=== PATIENT | male | born 1980 | race Caucasian/White ===

== ENCOUNTER 2017-08-02 11:47 | Emergency (ER) | payer OTHER ==
[~2017-08-02] VITALS: Ht 185.4 cm; Wt 112.0 kg
[~2017-08-02 11:47] MED LIST: ESOM40CA PO
[2017-08-02] MEDS ORDERED: MAALOX/HYOSCYAMINE/LIDOCAINE 45 ML BTL ONE (11:52)
[2017-08-02] MEDS ORDERED: PLEASE ENTER HEIGHT AND WEIGHT MC SCH (11:58)
[2017-08-02] MEDS ORDERED: SODIUM CHLORIDE 0.9% 1,000ML IVBOLUS ONE (12:00)
[2017-08-02] MEDS ORDERED: SODIUM CHLORIDE FLUSH 10ML SYR IVF ONE (12:00)
[2017-08-02] MEDS ORDERED: MAALOX/HYOSCYAMINE/LIDOCAINE 45 ML BTL PO ONE (12:00)
[2017-08-02 12:19] LABS: HEMATOCRIT 43.9 % (39.2-51.8); HEMOGLOBIN 15.1 g/dL (13.7-18.0); WHITE BLOOD COUNT 6.7 x10^3/uL (3.4-10)
[2017-08-02 12:33] LABS: BLOOD UREA NITROGEN 15 mg/dL (7-18)
[2017-08-02 12:36] LABS: ASPARTATE AMINO TRANSFERASE 79 U/L (15-37)
[2017-08-02 13:44] VITALS: BP 120/74
== END 2017-08-02 13:46 | disposition home or self-care (01) ==
LOC: ED 12:12
DX: K29.00 Acute gastritis without bleeding (principal); G47.30 Sleep apnea, unspecified
CPT/HCPCS: 36415; 71010; 76700; 80053; 83605; 83690; 85025; 93005; 96360; 99285; J7030

== ENCOUNTER 2017-09-07 05:31 | Day surgery (SDC) | payer OTHER ==
[~2017-09-07] VITALS: Ht 182.9 cm; Wt 110.0 kg
[2017-09-07] MEDS ORDERED: LACTATED RINGERS 1,000 ML IV SCH ×2 (05:46→07:46)
[2017-09-07 05:49] VITALS: BP 142/90
[2017-09-07] MEDS ORDERED: LIDOCAINE 1%, 2ML SQ PRN (06:00)
[2017-09-07 06:10] VITALS: BP 142/90
[2017-09-07] MEDS ORDERED: BUPIVACAINE/PF 0.5% ONE (06:20)
[2017-09-07] MEDS ORDERED: EPINEPHRINE 1 MG/ML, 1ML ONE (06:21)
[2017-09-07] MEDS ORDERED: FENTANYL PF 250 MCG/5ML ONE (06:25)
[2017-09-07] MEDS ORDERED: MIDAZOLAM 1 MG/ML, 5ML ONE (06:25)
[2017-09-07] MEDS ORDERED: PROPOFOL 10 MG/ML, 20ML ONE (06:25)
[2017-09-07] MEDS ORDERED: SUCCINYLCHOLINE 20 MG/ML, 10ML ONE (06:25)
[2017-09-07] MEDS ORDERED: DEXAMETHASONE 4 MG/ML, 1ML ONE (06:27)
[2017-09-07] MEDS ORDERED: OXYcodone 5 MG/5 ML ORAL.SOL UDC PO PRN (07:00)
[2017-09-07] MEDS ORDERED: HYDROmorphone 1 MG/ML, 1ML IV PRN (07:00)
[2017-09-07] MEDS ORDERED: PROMETHAZINE 25 MG/ML, 1ML IV PRN (07:00)
[2017-09-07] MEDS ORDERED: MEPERIDINE/PF 25MG/0.5ML IVPush PRN (07:00)
[2017-09-07] MEDS ORDERED: ACETAMINOPHEN 325 MG TABLET PO PRN (07:00)
[2017-09-07] MEDS ORDERED: FENTANYL PF 100 MCG/2ML IV PRN (07:00)
[2017-09-07] MEDS ORDERED: hydrALAzine 20 MG/ML, 1ML IV PRN (07:00)
[2017-09-07] MEDS ORDERED: LABETALOL 5MG/ML, 20ML IV PRN (07:00)
[2017-09-07] MEDS ORDERED: ONDANSETRON 2MG/ML, 2ML IVPush PRN ×2 (07:00→08:00)
[2017-09-07] MEDS ORDERED: BUPIVACAINE/PF-EPI 0.5% 1:200K IM ONE (07:15)
[2017-09-07] MEDS ORDERED: ROCURONIUM 10 MG/ML,10ML ONE (07:22)
[2017-09-07] MEDS ORDERED: ONDANSETRON 2MG/ML, 2ML ONE (07:23)
[2017-09-07] MEDS ORDERED: GLYCOPYRROLATE 0.4 MG/2 ML, 2ML ONE (07:32)
[2017-09-07] MEDS ORDERED: NEOSTIGMINE 1 MG/ML, 10ML ONE (07:32)
[2017-09-07] MEDS ORDERED: KETOROLAC 30 MG/1 ML ONE (07:35)
[2017-09-07] MEDS ORDERED: ACETAMINOPHEN 650 MG/20.3 ML UDC ONE (07:51)
[2017-09-07] MEDS ORDERED: OXYcodone 5 MG/5 ML ORAL.SOL UDC ONE (07:51)
[2017-09-07] MEDS ORDERED: FENTANYL PF 100 MCG/2ML ONE (07:51)
[2017-09-07] MEDS ORDERED: HYDROcodone/APAP 7.5-325MG/15ML UDC PO PRN ×2 (08:00)
[2017-09-07] MEDS ORDERED: morphine SULFATE 10 MG/ML, 1ML IVPush PRN (08:00)
[2017-09-07] MEDS ORDERED: GABAPENTIN 300 MG CAPSULE ONE ×2 (08:14→10:46)
[2017-09-07] MEDS ORDERED: GABAPENTIN 300 MG CAPSULE PO SCH (09:00)
[2017-09-07] MEDS ORDERED: CEFOTETAN 2 GM ONE (16:25)
== END 2017-09-07 09:50 ==
LOC: OUT 05:31
PROVIDERS: ATTEND Thoracic Surgery (Cardiothoracic Vascular Surgery)
DX: K80.10 Calculus of gallbladder with chronic cholecystitis without obstruction (principal); K21.9 Gastro-esophageal reflux disease without esophagitis; E66.01 Morbid (severe) obesity due to excess calories; Z68.33 Body mass index [BMI] 33.0-33.9, adult; Z72.89 Other problems related to lifestyle; Z87.891 Personal history of nicotine dependence
CPT/HCPCS: 47562; 88304; J0171; J0330; J1100; J1885; J2250; J2405; J2704; J2710; J3010; J3490; J7120; S0074

== ENCOUNTER → 2019-10-30 | Outpatient (CLI) | payer OTHER ==
[~2019-10-30] MED LIST changes: +CYCL-259 PO; +DENIES; +GABA-826 PO; +OMEP-110 PO; +OXYC5CAP2 PO
== END | disposition home or self-care (01) ==
LOC: RAD 13:22
PROVIDERS: ATTEND Orthopaedic Surgery
DX: S83.241A Other tear of medial meniscus, current injury, right knee, initial encounter (principal); S83.511A Sprain of anterior cruciate ligament of right knee, initial encounter; M25.561 Pain in right knee; M22.41 Chondromalacia patellae, right knee; X58.XXXA Exposure to other specified factors, initial encounter; Y93.89 Activity, other specified; Y92.89 Other specified places as the place of occurrence of the external cause; Y99.8 Other external cause status

== ENCOUNTER 2019-12-24 14:56 | Outpatient (CLI) | payer OTHER | END 2019-12-24 23:59 | disposition home or self-care (01) | LOC: RAD 14:56 | PROVIDERS: ATTEND Internal Medicine | DX: R51 Headache (principal); I10 Essential (primary) hypertension | CPT/HCPCS: 70450 ==

== ENCOUNTER 2020-09-02 14:10 | Outpatient (CLI) | payer OTHER | END 2020-09-02 23:59 | disposition home or self-care (01) | LOC: RAD 14:10 | PROVIDERS: ATTEND Physical Medicine & Rehabilitation | DX: M50.122 Cervical disc disorder at C5-C6 level with radiculopathy (principal) | CPT/HCPCS: 72141 ==

== ENCOUNTER → 2020-12-08 | Outpatient (CLI) | payer OTHER ==
[~2020-12-08] MED LIST changes: +AMLO-150 PO; -CYCL-259 PO; +CYCL10TA2 PO; +FAMO-79 PO; +METH4TAB2 PO; +METH750T87 PO; +OXYC1TAB14 PO
== END | disposition home or self-care (01) ==
LOC: RAD 10:22
PROVIDERS: ATTEND Neurological Surgery
DX: M50.122 Cervical disc disorder at C5-C6 level with radiculopathy (principal)
CPT/HCPCS: 72040